=== PATIENT | male | born 1975 | race Caucasian/White ===

== ENCOUNTER 2017-04-07 15:58 | Emergency (ER) | payer OTHER ==
[2017-04-07 16:02] VITALS: BP 157/90; PULSE 98; RESP 20; TEMP 98.7; O2SAT 98
[2017-04-07] MEDS ORDERED: TETANUS/DIPHTHERIA TOXOID ADULT 0.5 ML VIAL IM ONE (17:45)
[2017-04-07] MEDS ORDERED: LIDOCAINE 1%/EPINEPHrine 1:100,000 SOLN 20 ML VIAL INFIL ONE (18:00)
--- NOTE | 2017-04-07 18:04 | PD ---
HPI Chief Complaint: Laceration/Skin Injury Time Seen by Provider: 17:30 Travel History International Travel<30 days: No Contact w/Intl Traveler<30days: No Traveled to known affect area: No History of Present Illness HPI 41-year-old male presents to emergency Department with injury to the left dorsal distal index finger. Patient was using a table saw when he neck the tip of his left index finger by the saw blade. Patient has a laceration along the side of the left index nailbed extending to the tip of the finger. He has normal range of motion and sensation. Bleeding is controlled with pressure. Last tetanus is unknown. Pain is 7 out of 10. Patient has no known drug allergies PFSH Social History Alcohol Use: Yes Tobacco Use: No Substance Use: No Allergies-Medications (Allergen,Severity, Reaction): Coded Allergies: No Known Allergies (Unverified , 04/07/17) Reported Meds & Prescriptions Reported Meds & Active Scripts Active No Active Prescriptions or Reported Medications Review of Systems Except as stated in HPI: all other systems reviewed are Neg General / Constitutional: No: Fever Eyes: No: Visual changes HENT: No: Headaches Cardiovascular: No: Chest Pain or Discomfort Respiratory: No: Shortness of Breath Gastrointestinal: No: Abdominal Pain Genitourinary: No: Dysuria Musculoskeletal: No: Pain Skin: Positive Lesions (see history of present illness.), No Rash Neurologic: No: Weakness Psychiatric: No: Depression Endocrine: No: Polydipsia Hematologic/Lymphatic: No: Easy Bruising Physical Exam Narrative GENERAL: Patient is in mild to moderate distress. SKIN: Warm and dry. Normal color. Normal turgor. Patient has proximal 1 cm table saw laceration along the lateral fingernail bed from the base of the fingernail through the tip of the finger. The nail itself does not seem to be involved. It is difficult to determine the depth of the lesion. Patient has normal capillary refill. HEAD: Atraumatic. Normocephalic. EYES: Pupils equal and round. No scleral icterus. No injection or drainage. ENT: No nasal bleeding or discharge. Mucous membranes pink and moist. NECK: Trachea midline. No JVD. CARDIOVASCULAR: Regular rate and rhythm. RESPIRATORY: No accessory muscle use. Clear to auscultation. Breath sounds equal bilaterally. GASTROINTESTINAL: Abdomen soft, non-tender, nondistended. Hepatic and splenic margins not palpable. MUSCULOSKELETAL: Extremities without clubbing, cyanosis, or edema. No obvious deformities. Patient has normal range of motion of the left index finger. NEUROLOGICAL: Awake and alert. No obvious cranial nerve deficits. Motor grossly within normal limits. Five out of 5 muscle strength in the arms and legs. Normal speech. PSYCHIATRIC: Appropriate mood and affect; insight and judgment normal. Data Data Last Documented VS Vital Signs Date Time Temp Pulse Resp B/P Pulse Ox O2 Delivery O2 Flow Rate FiO2 04/07/17 16:02 98.7 98 20 157/90 98 Room Air Orders Tetanus/Diphtheria Tox Adult (Tetanus/Di (04/07/17 17:45) Finger ([id number]) (04/07/17 17:35) Lidocai-Epi 1%-1:100,000 Inj (Xylocaine- (04/07/17 18:00) Cefazolin Inj (Ancef Inj) (04/07/17 18:15) Lidocaine 1% Inj (50 Ml) (Xylocaine 1% I (04/07/17 18:30) MDM Medical Decision Making Medical Screen Exam Complete: Yes Emergency Medical Condition: Yes Differential Diagnosis Laceration left distal index finger. Possible bony involvement. Need for sutures. Need for tetanus. Narrative Course Patient is medically stable at time of exam. Patient is given tetanus IM 0.5 mL. Patient is given 1 g Ancef IM. X-ray of the left index finger is ordered. No obvious bony injuries noted by radiologist. Laceration is repaired. See procedure note. Dressing is placed and wound instructions are reviewed with the patient. Patient can use ice and ibuprofen Tylenol as needed. Recommend follow-up in 2 days for a wound check. Sutures can come out in 7 days per Diagnosis Primary Impression: Laceration of left index finger without foreign body Qualified Code: S61.211A - Laceration of left index finger without foreign body, nail damage status unspecified, initial encounter Patient Instructions: Finger Laceration (ED), General Instructions Additional Instructions: Patient is given tetanus IM 0.5 mL. Patient is given 1 g Ancef IM. X-ray of the left index finger is ordered. No obvious bony injuries noted by radiologist. Laceration is repaired. See procedure note. Dressing is placed and wound instructions are reviewed with the patient. Patient can use ice and ibuprofen Tylenol as needed. Recommend follow-up in 2 days for a wound check. Sutures can come out in 7 days per Med/Other Pt SpecificInfo: Prescription(s) given Scripts Cephalexin 500 Mg [id number] Mg PO Q8H #15 CAP Prov:Kenan Roman MD 04/07/17 Disposition: 01 DISCHARGE HOME Condition: Stable Roly Gaines Apr 07, 2017 18:04
--- NOTE | 2017-04-07 18:27 | RADRPT ---
EXAM DATE/TIME: 04/07/2017 18:09 [facility] COMPARISON: No previous studies available for comparison. INDICATIONS : Left hand distal second digit laceration from table saw. MEDICAL HISTORY : None. SURGICAL HISTORY : None. ENCOUNTER: Initial ACUITY: 1 day PAIN SCORE: 7/10 LOCATION: Right hand second digit. FINDINGS: Examination of the second digit of the left hand demonstrates no evidence of fracture or dislocation. No radiopaque foreign bodies are seen. The soft tissues are intact. CONCLUSION: Swelling, negative for foreign body. Matthew Zapata MD FACR on April 07, 2017 at 18:25 Board Certified Radiologist. This report was verified electronically.
[2017-04-07] MEDS ORDERED: LIDOCAINE HCL 1% 50 ML VIAL INFIL ONE (18:30)
[2017-04-07] MEDS ORDERED: CEPH500C PO (18:48)
== END 2017-04-07 19:05 | disposition home or self-care (01) ==
LOC: NEPK 15:58
DX: S61.211A Laceration without foreign body of left index finger without damage to nail, initial encounter (principal); Z23 Encounter for immunization; W31.2XXA Contact with powered woodworking and forming machines, initial encounter
CPT/HCPCS: 12001; 73140; 90471; 90714; 96372; 99284; J0690